=== PATIENT | male | born 1980 ===

== ENCOUNTER 2019-04-17 08:44 | Emergency (ER) | payer SELFPAY | END 2019-04-17 10:10 | disposition home or self-care (01) | LOC: ERS 08:44 | DX: J11.1 Influenza due to unidentified influenza virus with other respiratory manifestations (principal); E78.5 Hyperlipidemia, unspecified; F17.210 Nicotine dependence, cigarettes, uncomplicated | CPT/HCPCS: 87081; 87430; 87804; 99283 ==